=== PATIENT | male | born 1930 | race Caucasian/White ===

== ENCOUNTER 2017-03-18 06:13 | Day surgery (SDC) | payer MEDICARE, OTHER ==
[2017-03-18 06:51] VITALS: TEMP 97.2
[2017-03-18] MEDS ORDERED: ceFAZolin 1 GM in NORMAL SALINE MINI-BAG+ 100 ML IV ONE (07:00)
[2017-03-18] MEDS ORDERED: MIDAZOLAM HCL 2 MG/2 ML SYR IV ONE (07:02)
[2017-03-18] MEDS ORDERED: ACETAMINOPHEN 1,000 MG/100 ML VIAL IV SCH (07:02)
[2017-03-18] MEDS ORDERED: LIDOCAINE HCL 1% 20 ML VIAL SUBCUT ONE ×2 (07:02→09:43)
[2017-03-18] MEDS ORDERED: FAMOTIDINE IN SALINE, ISO-OSM 20 MG/50 ML PIGGYBACK IV SCH (07:02)
[2017-03-18] MEDS ORDERED: LACTATED RINGERS 1,000 ML IV SCH ×3 (07:02→09:43)
[2017-03-18] MEDS ORDERED: BUPIVACAINE HCL/PF 0.25% 10 ML VIAL INJ ONE (07:19)
[2017-03-18] MEDS ORDERED: MIDAZOLAM HCL 2 MG/2 ML VIAL ONE (07:19)
[2017-03-18] MEDS ORDERED: FENTANYL 100 MCG/2 ML VIAL ONE ×2 (07:25→08:56)
[2017-03-18] MEDS ORDERED: HEMOSTATIC MATRIX 5 ML SYR MISC ONE (09:16)
[2017-03-18 09:43] VITALS: RESP 16
[2017-03-18] MEDS ORDERED: ONDANSETRON HCL 4 MG/2 ML VIAL IV PRN (09:43)
[2017-03-18] MEDS ORDERED: MORPHINE SULFATE 10 MG/ML SYR IV PRN (09:43)
[2017-03-18] MEDS ORDERED: FENTANYL 100 MCG/2 ML VIAL IV PRN (09:43)
[2017-03-18 10:48] VITALS: BP 133/76; PULSE 63; O2SAT 93
--- NOTE | 2017-03-18 11:35 | PROCEDURE NOTE: Gen Surgery ---
General Surgery Procedure Note - Date of Encounter Date of Encounter: 03/18/17 - Brief Operative Note (1) Unilateral inguinal hernia with obstruction and without gangrene Date of procedure: 03/18/17 Pre-Op Diagnosis: same Post-op diagnosis: same Procedure: [id number] Anesthesia Type: General Physician: JIHAN OCONNELL Estimated Blood Loss: 50 Pathology: none sent X-ray taken: No Sponge and instrument counts: correct Condition: stable Disposition: same day Narrative: Patient with a larger left sliding hernia. It was large enough to displace the inf. epigastric vessels medially. A mesh was used for repair. A plug of mesh was placed into the deep ring. Both the ileoinguinal and ileohypogastric nerves were sacrificed.
--- NOTE | 2017-03-18 12:47 | OPERATIVE REPORT ---
DATE OF SURGERY: 03/18/17 PREOPERATIVE DIAGNOSIS: Incarcerated left inguinal hernia. POSTOPERATIVE DIAGNOSIS: Sliding left inguinal hernia. PROCEDURE PERFORMED: Repair of incarcerated inguinal hernia. SURGEON: Campos Kim MD ANESTHESIA: General with an LMA by Jim Poe CRNA. FINDINGS: The patient had much of his sigmoid colon in this hernia sac which extended into the colon. The colon was adherent to the sac wall. The majority of this hernia was an indirect defect. This caused the epigastric vessels to become displaced far medially. The inferior epigastric vein was ligated as it was in the way of the repair. A mesh was used to repair the floor of the canal. A plug of mesh was also used to reinforce the internal ring. Both the ilioinguinal and iliohypogastric nerves were ligated. SUMMARY: The patient was taken to the operating room and placed in the supine position. His lower abdomen was prepped with a ChloraPrep solution. A time out was called and the correct patient, correct preoperative medications and correct procedure were verified. After 3 minutes had elapsed to allow for the prep to dry draping occurred. The anterior iliac spine and pubic tubercle were marked out. A 10 cm incision was marked out in between them. Local in the form of 0.25% Marcaine without epinephrine was infiltrated. The skin was then sharply incised. Deeper dissection was done with the cautery. During this dissection it became apparent that a MAC type anesthetic would not work. He was therefore switched to general with an LMA. Next, the subcutaneous tissues were dissected upon and it was immediately evident that the colon was present in the subcutaneous tissues. Dissection was then carried out laterally to find the normal landmarks. The external oblique aponeurosis was identified and the fold of the aponeurosis to form the inguinal ligament was noted. This area of tissue was then freed up. The external oblique aponeurosis was then incised and opened up. At the external ring the sigmoid colon was apparent and was trapped within the hernia sac. Attempts to circumferentially control this were unsuccessful. Therefore the hernia sac was opened up. The sigmoid colon was retracted upon and the attachments to the sac were dissected free. Eventually the sigmoid colon could be completely reduced. The sac was incised and 3-0 Vicryl used to close it. Next, the inferior epigastric vein was dissected free and clamped and ligated with 2-0 Vicryl. This was necessary as it had become displaced medially presumably from the indirect hernia sac with the colon within it. The vein was in the way of the mesh repair. To keep the floor in reduction, a relaxing incision in the internal oblique was formed using the cautery. This allowed the internal oblique to be reapproximated to the Stoney s ligament and then the inguinal ligament in a running fashion. This kept the floor in good reduction. Next, a mesh of Surgimesh was brought in the field. It had been cut in a Alyce configuration. It was sewn in place with running 2-0 Prolene sutures. Before sewing this around the cord, a plug of Prolene mesh was placed in the anterior medial position of the deep ring. It was sewn in place with a single suture of Prolene. The other mesh was placed over the top of this. The 2 leaves of the mesh were sewn together with 2-0 Prolene. The mesh was about the size of my small finger. This mesh was then tucked laterally underneath the external oblique. Floseal was then placed in the wound. Both the ilioinguinal and the iliohypogastric nerves were divided as they were in the area of the repair of the mesh. Once the Floseal was in place the external oblique aponeurosis was closed with a running 3-0 Vicryl. The deeper tissues were reapproximated with interrupted 3-0 Vicryl. The skin was closed with a mattress suture of 4-0 nylon. A sterile dressing was then applied, anesthesia was reversed and the patient was taken from the operating room to the recovery room. NIKKO
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
== END 2017-03-18 10:38 | disposition home or self-care (01) ==
LOC: SDS 06:13
PROVIDERS: ATTEND Surgery
DX: K40.30 Unilateral inguinal hernia, with obstruction, without gangrene, not specified as recurrent (principal); M51.36 Other intervertebral disc degeneration, lumbar region; I13.10 Hypertensive heart and chronic kidney disease without heart failure, with stage 1 through stage 4 chronic kidney disease, or unspecified chronic kidney disease; E03.9 Hypothyroidism, unspecified; N18.9 Chronic kidney disease, unspecified; Z79.899 Other long term (current) drug therapy
CPT/HCPCS: 49525; 88302; C1781; J0690; J2250; J2405; J3010